=== PATIENT | female | born 1990 | race American Indian/Alaskan Native ===

== ENCOUNTER 2018-07-26 10:04 | Emergency (ER) | payer SELFPAY ==
[2018-07-26 10:12] VITALS: BP 120/72
--- NOTE | 2018-07-26 10:40 | Emergency Department Report ---
ED General Adult HPI - General Chief complaint: Urogenital-Female Stated complaint: ALLERGIC REACTION/UTI Time Seen by Provider: 07/26/18 10:27 Source: patient Mode of arrival: Ambulatory Limitations: No Limitations - History of Present Illness Initial comments: Patient is a 27-year-old female who is presenting with 2 medical problems. Patient states that she believes she may have a urinary tract infection. Patient has some dysuria and urinary frequency for the past 2-3 days. Patient denies any abnormal bleeding or vaginal discharge. Patient also states has been no fevers chills nausea vomiting. Patient also states that she has a new job at a [employer] and has a rash on the upper chest and back. She is not sure if there's been some exposure at her job. Patient has no rash or itching in any other parts of her body. Patient states is been no shortness of breath or difficulty swallowing. - Related Data Previous Rx's Medication Instructions Recorded Last Taken Type Nitrofurantoin Monohyd/M-Cryst 100 mg PO BID #14 capsule 07/26/18 Unknown Rx [Macrobid 100 mg Capsule] Phenazopyridine [Pyridium] 100 mg PO TID 2 Days tab 07/26/18 Unknown Rx Triamcinolone 0.1% [Kenalog 0.1% 1 applic TP TID #1 tube 07/26/18 Unknown Rx CREAM] predniSONE [Deltasone] 20 mg PO QDAY #5 tab 07/26/18 Unknown Rx Allergies Allergy/AdvReac Type Severity Reaction Status Date / Time Penicillins Allergy Anaphylaxis Verified 07/26/18 10:12 sulfamethoxazole AdvReac Unknown Verified 07/26/18 10:12 [From Bactrim] trimethoprim [From Bactrim] AdvReac Unknown Verified 07/26/18 10:12 ED Review of Systems ROS: Stated complaint: ALLERGIC REACTION/UTI Other details as noted in HPI Comment: All other systems reviewed and negative ED Past Medical Hx - Past Medical History Previous Medical History?: No - Surgical History Past Surgical History?: No - Social History Smoking Status: Never Smoker Substance Use Type: None - Medications Home Medications: Home Medications Medication Instructions Recorded Confirmed Last Taken Type Nitrofurantoin Monohyd/M-Cryst 100 mg PO BID #14 capsule 07/26/18 Unknown Rx [Macrobid 100 mg Capsule] Phenazopyridine [Pyridium] 100 mg PO TID 2 Days tab 07/26/18 Unknown Rx Triamcinolone 0.1% [Kenalog 0.1% 1 applic TP TID #1 tube 07/26/18 Unknown Rx CREAM] predniSONE [Deltasone] 20 mg PO QDAY #5 tab 07/26/18 Unknown Rx ED Physical Exam - General Limitations: No Limitations General appearance: alert, in no apparent distress - Head Head exam: Present: atraumatic, normocephalic - Eye Eye exam: Present: normal appearance - ENT ENT exam: Present: mucous membranes moist - Neck Neck exam: Present: normal inspection - Respiratory Respiratory exam: Present: normal lung sounds bilaterally. Absent: respiratory distress - Cardiovascular Cardiovascular Exam: Present: regular rate, normal rhythm. Absent: systolic murmur, diastolic murmur, rubs, gallop - GI/Abdominal GI/Abdominal exam: Present: soft, normal bowel sounds - Extremities Exam Extremities exam: Present: normal inspection - Back Exam Back exam: Present: normal inspection - Neurological Exam Neurological exam: Present: alert, oriented X3 - Psychiatric Psychiatric exam: Present: normal affect, normal mood - Skin Skin exam: Present: warm, dry, intact, normal color, rash (patient has a macular papular rash on the upper chest and upper back.) ED Course Vital Signs 07/26/18 10:10 Temperature 98.7 F Pulse Rate 82 Respiratory 16 Rate Blood Pressure 120/72 O2 Sat by Pulse 99 Oximetry ED Medical Decision Making - Lab Data Lab Results 07/26/18 Range/Units 10:25 Urine Color Yellow (Yellow) Urine Turbidity Cloudy (Clear) Urine pH 5.0 (5.0-7.0) Ur Specific [place] 1.021 (1.003-1.030) Urine Protein 30 mg/dl (Negative) mg/dL Urine Glucose (UA) Neg (Negative) mg/dL Urine Ketones Neg (Negative) mg/dL Urine Blood Sm (Negative) Urine Nitrite Neg (Negative) Urine Bilirubin Neg (Negative) Urine Urobilinogen < 2.0 (<2.0) mg/dL Ur Leukocyte Esterase Lg (Negative) Urine WBC (Auto) 127.0 H (0.0-6.0) /HPF Urine RBC (Auto) 8.0 (0.0-6.0) /HPF U Epithel Cells (Auto) 27.0 H (0-13.0) /HPF Urine Bacteria (Auto) 1+ (Negative) /HPF Urine Mucus 1+ /HPF Urine HCG, Qual Negative (Negative) - Radiology Data Patient will be started on antibiotics for a urinary tract infection patient also be started on meds for possible allergic reaction and dermatitis. Patient discharged home. Critical care attestation.: If time is entered above; I have spent that time in minutes in the direct care of this critically ill patient, excluding procedure time. ED Disposition Clinical Impression: Dermatitis Acute cystitis Qualifiers: Hematuria presence: without hematuria Qualified Code(s): N30.00 - Acute cystitis without hematuria Disposition: TO HOME OR SELFCARE Is pt being admited?: No Does the pt Need Aspirin: No Condition: Stable Instructions: Urinary Tract Infection in Women (ED), Acute Rash (ED) Referrals: [facility] [Outside] - 3-5 Days Time of Disposition: 11:08
[2018-07-26 10:46] LABS: Bacteria,Urine 1+ /HPF (Negative); Bilirubin,Urine NEG (Negative); Blood,Urine SM (Negative); Color,Urine Yellow (Yellow); HCG Qualitative,Urine Negative (Negative); Mucus,Urine 1+ /HPF; Urobilinogen,Urine < 2.0 mg/dL (<2.0)
== END 2018-07-26 11:20 | disposition home or self-care (01) ==
LOC: ED 10:04
DX: N30.00 Acute cystitis without hematuria (principal); Z88.0 Allergy status to penicillin; Z88.2 Allergy status to sulfonamides
CPT/HCPCS: 81001; 81025; 99283

== ENCOUNTER 2018-08-10 14:26 | Emergency (ER) | payer OTHER ==
[2018-08-10 15:12] VITALS: BP 117/73
[2018-08-10 16:21] LABS: Bilirubin,Urine NEG (Negative); Blood,Urine NEG (Negative); Color,Urine Yellow (Yellow); HCG Qualitative,Urine Negative (Negative); Mucus,Urine 3+ /HPF; Urobilinogen,Urine < 2.0 mg/dL (<2.0)
--- NOTE | 2018-08-10 17:26 | Emergency Department Report ---
ED Female HPI - General Chief complaint: Urogenital-Female Stated complaint: UTI/BACTERIAL INFECTION Time Seen by Provider: 08/10/18 17:22 Source: patient Mode of arrival: Ambulatory Limitations: No Limitations - History of Present Illness Initial comments: Patient reports dysuria that started two days ago. She reports a recent UTI treated with Macrobid two weeks ago, however symptoms have returned MD Complaint: dysuria Onset/Timin -: days(s) Location: suprapubic Radiation: non-radiating Severity: moderate Severity scale (0 -10): 5 Quality: cramping Consistency: constant Improves with: none Worsens with: urination Are you Now?: No Last Menstrual Period: 07/15/18 EDC: 04/21/19 Associated Symptoms: dysuria. denies: vaginal discharge, vaginal bleeding, abdominal pain, nausea/vomiting, fever/chills, headaches, loss of appetite, hematuria, rash, seizure, shortness of breath, syncope, weakness - Related Data Sexually active: Yes Previous Rx's Medication Instructions Recorded Last Taken Type Nitrofurantoin Monohyd/M-Cryst 100 mg PO BID #14 capsule 07/26/18 Unknown Rx [Macrobid 100 mg Capsule] Triamcinolone 0.1% [Kenalog 0.1% 1 applic TP TID #1 tube 07/26/18 Unknown Rx CREAM] predniSONE [Deltasone] 20 mg PO QDAY #5 tab 07/26/18 Unknown Rx Phenazopyridine [Pyridium] 100 mg PO TID 2 Days tab 08/10/18 Unknown Rx levoFLOXacin [Levaquin] 750 mg PO QDAY #5 tablet 08/10/18 Unknown Rx Allergies Allergy/AdvReac Type Severity Reaction Status Date / Time Penicillins Allergy Anaphylaxis Verified 07/26/18 10:12 sulfamethoxazole AdvReac Unknown Verified 07/26/18 10:12 [From Bactrim] trimethoprim [From Bactrim] AdvReac Unknown Verified 07/26/18 10:12 ED Review of Systems ROS: Stated complaint: UTI/BACTERIAL INFECTION Other details as noted in HPI Constitutional: denies: chills, fever Eyes: denies: eye pain, eye discharge, vision change ENT: denies: ear pain, throat pain Respiratory: denies: cough, shortness of breath, SOB with exertion, SOB at rest , wheezing Cardiovascular: denies: chest pain, palpitations, dyspnea on exertion, orthopnea Endocrine: no symptoms reported Gastrointestinal: denies: abdominal pain, nausea, vomiting, diarrhea, constipation, hematemesis, melena Genitourinary: dysuria. denies: urgency, frequency, hematuria, discharge, abnormal menses, dyspareunia Musculoskeletal: denies: back pain, joint swelling, arthralgia Skin: denies: rash, lesions Neurological: denies: headache, weakness, paresthesias Psychiatric: denies: anxiety, depression Hematological/Lymphatic: denies: easy bleeding, easy bruising ED Past Medical Hx - Past Medical History Previous Medical History?: No - Surgical History Past Surgical History?: No - Social History Smoking Status: Never Smoker Substance Use Type: None - Medications Home Medications: Home Medications Medication Instructions Recorded Confirmed Last Taken Type Nitrofurantoin Monohyd/M-Cryst 100 mg PO BID #14 capsule 07/26/18 Unknown Rx [Macrobid 100 mg Capsule] Triamcinolone 0.1% [Kenalog 0.1% 1 applic TP TID #1 tube 07/26/18 Unknown Rx CREAM] predniSONE [Deltasone] 20 mg PO QDAY #5 tab 07/26/18 Unknown Rx Phenazopyridine [Pyridium] 100 mg PO TID 2 Days tab 08/10/18 Unknown Rx levoFLOXacin [Levaquin] 750 mg PO QDAY #5 tablet 08/10/18 Unknown Rx ED Physical Exam - General Limitations: No Limitations General appearance: alert, in no apparent distress - Neck Neck exam: Present: normal inspection, full ROM. Absent: tenderness, meningismus, lymphadenopathy, thyromegaly - Respiratory Respiratory exam: Present: normal lung sounds bilaterally. Absent: respiratory distress, wheezes, rales, rhonchi, stridor, chest wall tenderness, accessory muscle use, decreased breath sounds, prolonged expiratory - Cardiovascular Cardiovascular Exam: Present: regular rate, normal rhythm, normal heart sounds. Absent: systolic murmur, diastolic murmur, rubs, gallop - GI/Abdominal GI/Abdominal exam: Present: soft, normal bowel sounds. Absent: distended, tenderness, guarding, rebound, rigid - Extremities Exam Extremities exam: Present: normal inspection, full ROM, normal capillary refill. Absent: tenderness, pedal edema - Back Exam Back exam: Present: normal inspection, full ROM. Absent: tenderness, CVA tenderness (R), CVA tenderness (L), muscle spasm, paraspinal tenderness, vertebral tenderness, rash noted - Neurological Exam Neurological exam: Present: alert, oriented X3, CN II-XII intact, normal gait, reflexes normal. Absent: motor sensory deficit - Psychiatric Psychiatric exam: Present: normal affect, normal mood - Skin Skin exam: Present: warm, dry, intact, normal color. Absent: rash ED Course Vital Signs 08/10/18 15:09 Temperature 98.5 F Pulse Rate 75 Respiratory 16 Rate Blood Pressure 117/73 O2 Sat by Pulse 100 Oximetry - Reevaluation(s) Reevaluation #1: 08/10/18 17:27 laboratory studies ordered ED Medical Decision Making - Lab Data Lab Results 08/10/18 Range/Units 15:23 Urine Color Yellow (Yellow) Urine Turbidity Cloudy (Clear) Urine pH 5.0 (5.0-7.0) Ur Specific [place] 1.024 (1.003-1.030) Urine Protein 30 mg/dl (Negative) mg/dL Urine Glucose (UA) Neg (Negative) mg/dL Urine Ketones Neg (Negative) mg/dL Urine Blood Neg (Negative) Urine Nitrite Neg (Negative) Urine Bilirubin Neg (Negative) Urine Urobilinogen < 2.0 (<2.0) mg/dL Ur Leukocyte Esterase Lg (Negative) Urine WBC (Auto) 170.0 H (0.0-6.0) /HPF Urine RBC (Auto) 15.0 (0.0-6.0) /HPF U Epithel Cells (Auto) 15.0 H (0-13.0) /HPF Urine Mucus 3+ /HPF Urine HCG, Qual Negative (Negative) Vital Signs 08/10/18 15:09 Temperature 98.5 F Pulse Rate 75 Respiratory 16 Rate Blood Pressure 117/73 O2 Sat by Pulse 100 Oximetry - Medical Decision Making During the course of ED, all other systems are unremarkable except for documentation in HPI. Urinalysis leukocytes were 170 and previously 127, therefore she was sent home with prescription for Levaquin, instructed to follow up with PCP this week, she verbalized understanding - Differential Diagnosis UTI, Pylonephritis Critical care attestation.: If time is entered above; I have spent that time in minutes in the direct care of this critically ill patient, excluding procedure time. ED Disposition Clinical Impression: Urinary tract infection Qualifiers: Urinary tract infection type: site unspecified Hematuria presence: without hematuria Qualified Code(s): N39.0 - Urinary tract infection, site not specified Disposition: TO HOME OR SELFCARE Is pt being admited?: No Does the pt Need Aspirin: No Condition: Stable Instructions: Urinary Tract Infection in Women (ED) Additional Instructions: Take medication as directed. Follow up with the selective referral given at discharge. Return back to the ED for worsening symptoms or concerns Prescriptions: levoFLOXacin [Levaquin] 750 mg PO QDAY #5 tablet Phenazopyridine [Pyridium] 100 mg PO TID 2 Days tab Referrals: DANIEL HILL MD [Staff Physician] - 3-5 Days Forms: Work/School Release Form(ED) Time of Disposition: 17:33
== END 2018-08-10 17:36 | disposition home or self-care (01) ==
LOC: ED 14:26
DX: N39.0 Urinary tract infection, site not specified (principal); Z88.0 Allergy status to penicillin; Z88.2 Allergy status to sulfonamides
CPT/HCPCS: 81001; 81025; 99283

== ENCOUNTER 2021-02-04 09:47 | Emergency (ER) | payer BC ==
[2021-02-04 10:32] VITALS: BP 124/85
[2021-02-04] MEDS ORDERED: oxyCODONE /ACETAMINOPHEN 5-325MG TAB PO ONE (10:35)
[2021-02-04] MEDS ORDERED: DIPHtheria,PERTUSSIS(ACELL),TETANUS VACCINE/PF 0.5 ML VIAL IM ONE (10:35)
[2021-02-04] MEDS ORDERED: ONDANSETRON 4 MG ODT TAB PO ONE (10:35)
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
== END 2021-02-04 11:38 | disposition home or self-care (01) ==
LOC: ED 09:47
DX: S80.812A Abrasion, left lower leg, initial encounter (principal); Z79.1 Long term (current) use of non-steroidal anti-inflammatories (NSAID); Z79.2 Long term (current) use of antibiotics; Z79.899 Other long term (current) drug therapy; Z88.0 Allergy status to penicillin; Z88.8 Allergy status to other drugs, medicaments and biological substances; W18.39XA Other fall on same level, initial encounter; Y93.89 Activity, other specified; Y92.89 Other specified places as the place of occurrence of the external cause; Y99.8 Other external cause status
CPT/HCPCS: 90471; 90715; 99282; Q0162